=== PATIENT | female | born 1930 | race American Indian/Alaskan Native ===

== ENCOUNTER 2016-06-02 12:54 | Inpatient (IN) | payer MEDICARE ==
[2016-06-02 15:09] LABS: ADD MANUAL DIFF? NO
--- NOTE | 2016-06-02 15:15 | ED PDOC ---
Arrival/HPI - General Historian: Patient, Family - General Chief Complaint: Trauma Time Seen by Provider: 06/02/16 13:39 - History of Present Illness Narrative History of Present Illness (Text): 06/02/16 15:01 85 y/o female with hx CVA, seizure disorder, Afib on coumadin presenting s/p fall at home. History is provided primarily by patient's daughter. Daughter states her brother found the patient on the kitchen floor this morning. Brother does not report any obvious seizure activity or focal weakness during this time. The patient states she does not completely remember falling. It is unclear if the patient experienced head trauma. Daughter states the patient's mental status is altered from baseline. Currently patient is complaining of right hip and right knee pain. Daughter states patient is compliant with her seizure medications. (Kvng Del Real) Past Medical History - Provider Review Nursing Documentation Reviewed: Yes - Tetanus Immunization Tetanus Immunization: Unknown - Cardiac Hx Cardiac Disorders: Yes Hx Hypertension: Yes - Pulmonary Hx Respiratory Disorders: Yes Hx Pneumonia: Yes - Neurological Hx Neurological Disorder: Yes HX Cerebrovascular Accident: Yes (LEFT SIDED WEAKNESS) Hx Seizures: Yes - HEENT Hx HEENT Disorder: Yes Hx Cataracts: Yes Hx Glaucoma: Yes - Renal Hx Renal Disorder: No - Endocrine/Metabolic Hx Endocrine Disorders: No - Hematological/Oncological Hx Blood Disorders: No Hx AIDS: No - Integumentary Hx Dermatological Disorder: No - Musculoskeletal/Rheumatological Hx Musculoskeletal Disorders: Yes Hx Arthritis: Yes Hx Falls: Yes Hx Gout: Yes Hx Unsteady Gait: Yes - Gastrointestinal Hx Gastrointestinal Disorders: No - Genitourinary/Gynecological Hx Genitourinary Disorders: Yes Hx Urinary Tract Infection: Yes - Psychiatric Hx Psychophysiologic Disorder: No Hx Depression: No Hx Emotional Abuse: No Hx Physical Abuse: No Hx Substance Use: No - Past Surgical History Past Surgical History: No Previous - Suicidal Assessment Feels Threatened In Home Enviroment: No Family/Social History Family/Social History: Unknown Family HX Smoking Status: Never Smoked Hx Alcohol Use: No Hx Substance Use: No Hx Substance Use Treatment: No Allergies/Home Meds Allergies/Adverse Reactions: Allergies No Known Allergies Allergy (Verified 04/02/12 16:42) Home Medications: Home Meds Medication Instructions Recorded Confirmed Metoprolol Tartrate [Lopressor] 25 mg PO DAILY 01/27/13 01/27/13 Warfarin [Coumadin] 3 mg PO DAILY 04/02/12 04/02/12 Lorazepam [Ativan] 06/02/16 Phenytoin, Extended [Dilantin] 06/02/16 Simvastatin [Simvastatin] 06/02/16 levETIRAcetam [Keppra] 06/02/16 Review of Systems - Physician Review All systems were reviewed & negative as marked: Yes - Review of Systems Constitutional: absent: Fatigue, Fevers Eyes: Normal ENT: Normal Respiratory: absent: SOB, Cough Cardiovascular: absent: Chest Pain, Calf Pain Gastrointestinal: absent: Abdominal Pain, Diarrhea, Nausea, Vomiting Genitourinary Female: absent: Dysuria, Frequency, Hematuria Skin: absent: Rash, Pruritis, Skin Lesions Neurological: absent: Headache, Dizziness, Focal Weakness, Speech Changes Psychiatric: absent: Anxiety, Depression Physical Exam Vital Signs Reviewed: Yes Temperature: Afebrile Blood Pressure: Normal Pulse: Regular Respiratory Rate: Normal Appearance: Positive for: Well-Appearing, Non-Toxic Pain Distress: None Mental Status: Positive for: Confused - Systems Exam Head: Present: Atraumatic, Normocephalic Pupils: Present: PERRL Extroacular Muscles: Present: EOMI Conjunctiva: Present: Normal Mouth: Present: Moist Mucous Membranes Neck: Present: Normal Range of Motion. No: Meningeal Signs, MIDLINE TENDERNESS , Paraspinal Tenderness, Lymphadenopathy Respiratory/Chest: Present: Clear to Auscultation, Good Air Exchange. No: Respiratory Distress Cardiovascular: Present: Regular Rate and Rhythm, Normal S1, S2 Abdomen: Present: Normal Bowel Sounds. No: Tenderness, Distention Upper Extremity: Present: Normal Inspection. No: Cyanosis, Edema Lower Extremity: Present: Other (tenderness along right knee joint line medially. tenderness trochanter of right hip ) Neurological: Present: GCS=15, CN II-XII Intact, Speech Normal Skin: Present: Warm, Dry. No: Rashes, Erythematous, Laceration, Abrasion Psychiatric: Present: Alert Vital Signs Temp Pulse Resp BP Pulse Ox 06/02/16 17:38 64 18 117/67 97 06/02/16 15:00 68 18 115/65 97 06/02/16 13:08 98.3 F 74 18 113/62 97 Medical Decision Making ED Course and Treatment: 06/02/16 16:00 ATTENDING PHYSICIAN FOCUSED HISTORY AND PHYSICAL EXAM NOTE: Patient is an 85 yr old female who was seen and examined w/ the resident. Pt was found on floor at home by family member. Pt c/o right hip and right knee pain. Pt has amnesia as to the exact mechanism (ie, fall vs. syncope). On our exam, pt is alert and awake in NAD Heart: RRR Lungs: CTA B/L, no R/R/W RLE: (+) tenderness to right hip, RLE is rotated Initial Impression: Fall vs. Syncope; r/o Fx. Initial Plan: Will get imaging and check labs (Mekhi Dahl Jr.) 06/02/16 15:17 85 y/o female with hx CVA, afib on coumadin, seizure disorder, HTN presenting s/ p fall at home. It is unclear if fall was attributed to syncope vs mechanical. There is no obvious head trauma however due to coumadin use CT head is warranted. - CBC - CMP - UA - PT, PTT - type and screen - CT head w/o - xray right knee, right hip 06/02/16 17:06 Lab results reviewed. Patient is anemic with Hgb 10.6, which is reduced from baseline. BNP is elevated. Troponin is negative. Liver enzymes and alk phos noted are elevated. Old labs were reviewed and elevated liver enzymes appear to be acute. CT head is reviewed. There is no acute intracranial pathology. CT cervical spine does not reveal fracture. Case discussed with Dr. Worrell who agrees to admit the patient for fall vs syncope. 06/02/16 18:25 xray right hip reveals acute impacted intertrochanteric fracture. Case discussed with Dr. Hodges who agrees to see the patient tonight. 06/02/16 18:44 (Kvng Del Real) - Lab Interpretations Lab Results: 06/02/16 14:50 06/02/16 14:50 Lab Results 06/02/16 14:50: WBC 9.4, RBC 3.70, Hgb 10.9 L, Hct 31.7 L, MCV 85.7, MCH 29.5, MCHC 34.4, RDW 15.4 H, Plt Count 140, MPV 9.2, Gran % 89.2 H, Lymph % (Auto) 6.7 L, [place] % (Auto) 3.2, Eos % (Auto) 0.9 L, Baso % (Auto) 0.0, Gran # 8.36 H, Lymph # 0.6 L, [place] # 0.3, Eos # 0.1, Baso # 0.00, PT 24.1 H, INR 2.23 H, APTT 46.0 H, Sodium 135, Potassium 3.1 L, Chloride 102, Carbon Dioxide 23, Anion Gap 13, BUN 30 H, Creatinine 0.9, Est GFR ( Amer) > 60, Est GFR (Non-Af Amer ) 60, Random Glucose 75, Calcium 8.1 L, Magnesium 1.8, Total Bilirubin 2.0 H, AST 88 H, ALT 70 H, Alkaline Phosphatase 201 H, Lactate Dehydrogenase 596, Total Creatine Kinase 128, Troponin I < 0.01, NT-Pro-B Natriuret Pep 2730 H, Total Protein 6.2, Albumin 3.1, Globulin 3.0, Albumin/Globulin Ratio 1.0 L, Blood Type B POSITIVE, Antibody Screen Negative, BBK History Checked No verified bt - RAD Interpretation Radiology Orders: 06/02/16 14:14 CERVICAL SPINE W/O CONTRAST [CT] Stat HEAD W/O CONTRAST [CT] Stat 06/02/16 14:15 Hip Right [HIP MIN 2V W/ PELVIS RT] [RAD] Stat 06/02/16 14:16 KNEE RIGHT 2 VIEWS (AP & LAT) [RAD] Stat - Medication Orders Current Medication Orders: Potassium Chloride (Potassium Chloride 20 Meq/100 Ml) 100 mls @ 50 mls/hr IVPB Q2H ELEANOR Stop: 06/02/16 21:14 Last Admin: 06/02/16 17:49 Dose: 50 mls/hr Levetiracetam (Keppra) 250 mg PO BID ELEANOR Phenytoin Sodium (Dilantin) 100 mg PO TID ELEANOR Discontinued Medications Potassium Chloride (Potassium Chloride Oral Soln) 40 meq PO STAT STA Stop: 06/02/16 17:05 Last Admin: 06/02/16 17:51 Dose: 40 meq Disposition/Present on Arrival - Present on Arrival Any Indicators Present on Arrival: No History of DVT/PE: No History of Uncontrolled Diabetes: No Urinary Catheter: No History of Decub. Ulcer: No History Surgical Site Infection Following: None - Disposition Have Diagnosis and Disposition been Completed?: Yes Disposition Time: 17:49 Patient Plan: Admission - Disposition Diagnosis: Hip fracture, Syncope Disposition: HOSPITALIZED Patient Problems: Current Active Problems Problem Status Diagnosed Hip fracture Acute Syncope Acute Condition: FAIR
[2016-06-02 15:16] LABS: EOS # 0.1 (0.0-0.7); EOS % 0.9 % (1.5-5.0); GRAN # 8.36 (1.4-6.5); GRAN % 89.2 % (50.0-68.0); HEMATOCRIT 31.7 % (36.0-48.0); LYMPH # 0.6 (1.2-3.4); LYMPH % 6.7 % (22.0-35.0); MEAN CELL VOLUME 85.7 fL (80.0-105.0); MEAN CORPUSCULAR HEMOGLOBIN 29.5 pg (25.0-35.0); MEAN CORPUSCULAR HGB CONC 34.4 g/dl (31.0-37.0); MEAN PLATELET VOLUME 9.2 fl (7.0-11.0); MONO # 0.3 (0.1-0.6); MONO % 3.2 % (1.0-6.0); PLATELET COUNT 140 10^3/uL (120.0-450.0); RED CELL DISTRIBUTION WIDTH 15.4 % (11.5-14.5); WHITE BLOOD COUNT 9.4 10^3/ul (4.5-11.0)
[2016-06-02 15:25] LABS: ALKALINE PHOSPHATASE 201 U/L (38-133); ALT/SGPT 70 U/L (7-56); AST/SGOT 88 U/L (15-39); BLOOD UREA NITROGEN 30 mg/dL (7-21); CALCIUM 8.1 mg/dL (8.4-10.5); CARBON DIOXIDE 23 mmol/L (21-33); CHLORIDE 102 mmol/L (98-107); GFR AFRICAN-AMERICAN > 60; GLUCOSE,RANDOM 75 mg/dL (70-110); MAGNESIUM 1.8 mg/dL (1.7-2.2); POTASSIUM 3.1 mmol/L (3.6-5.0); SODIUM 135 mmol/L (132-148); TOTAL PROTEIN 6.2 g/dL (5.8-8.3)
[2016-06-02 15:30] LABS: INR 2.23 (0.93-1.08)
[2016-06-02 15:38] LABS: TROPONIN I < 0.01 ng/mL
--- NOTE | 2016-06-02 16:31 | CT ---
PROCEDURE: CT HEAD WITHOUT CONTRAST. HISTORY: Fell and LOC; r/o neck or head injury COMPARISON: 04/02/2012 TECHNIQUE: Axial computed tomography images were obtained through the head/brain without intravenous contrast. Radiation dose: Total exam DLP = 822 mGy-cm. FINDINGS: HEMORRHAGE: No intracranial hemorrhage. BRAIN: No mass effect or edema. There is severe atrophy. There is encephalomalacia in the left temporal lobe and left occipital white matter VENTRICLES: Unremarkable. No hydrocephalus. CALVARIUM: Unremarkable. PARANASAL SINUSES: Unremarkable as visualized. No significant inflammatory changes. MASTOID AIR CELLS: Unremarkable as visualized. No inflammatory changes. OTHER FINDINGS: None. IMPRESSION: Severe atrophy and encephalomalacia. No acute intracranial findings
--- NOTE | 2016-06-02 16:33 | CT ---
PROCEDURE: CT Cervical Spine without contrast HISTORY: Fall with loss of consciousness COMPARISON: None available. TECHNIQUE: Axial computed tomography images were obtained of the cervical spine without the use of intravenous contrast. Coronal and sagittal reformatted images were created and reviewed. Radiation dose: Total exam DLP = 437 mGy-cm. FINDINGS: VERTEBRAE: No fracture. Normal alignment. No destructive bony lesion. DISCS/SPINAL CANAL/NEURAL FORAMINA: No significant central canal or neural foraminal stenosis. Multilevel degenerative changes PARASPINAL SOFT TISSUES: Unremarkable. OTHER FINDINGS: None. IMPRESSION: No evidence of fracture
[2016-06-02] MEDS ORDERED: Potassium Chloride 40 mEq/30 ml LIQ UD PO STA (17:04)
--- NOTE | 2016-06-02 17:15 | RAD ---
PROCEDURE: Right Knee Radiographs. HISTORY: fell w/ right hip pain and right knee pain COMPARISON: None. FINDINGS: BONES: There is diffuse bone demineralization. There is no acute fracture or bone destruction. JOINTS: There is severe tricompartmental degenerative osteoarthrosis with severe reduced joint spaces, marginal osteophytes and chondrocalcinosis, worse in the medial compartment. JOINT EFFUSION: There is a moderate suprapatellar joint effusion. OTHER FINDINGS: Atherosclerotic vascular calcifications are present. IMPRESSION: No acute displaced fracture or dislocation. Severe tricompartmental degenerative osteoarthrosis, worse in the medial compartment.
--- NOTE | 2016-06-02 17:22 | CARD ---
APPROVED REPORT EKG Measurement Heart [id number] <Conclusion> Atrial fibrillation Left anterior fascicular block Nonspecific ST and T wave abnormality, probably digitalis effect Abnormal ECG
--- NOTE | 2016-06-02 17:25 | RAD ---
PROCEDURE: Right hip radiographs HISTORY: fell w/ right hip pain and right knee pain COMPARISON: None TECHNIQUE: AP pelvis and AP and lateral views of the right hip were obtained. FINDINGS: There is an acute impacted intertrochanteric fracture. There is diffuse bone demineralization. The pelvic ring is intact. There is moderate right and severe left degenerative osteoarthrosis with near complete loss of left medial joint space. The periarticular soft tissues are normal. Atherosclerotic vascular calcifications are present. IMPRESSION: Acute impacted right intertrochanteric fracture. Moderate right and severe left degenerative osteoarthrosis in the hip joints.
[2016-06-02] MEDS: Potassium Chloride 20 mEq 100 ML IVPB SCH ×3 (17:49→23:15)
--- NOTE | 2016-06-02 20:52 | CON ---
DATE: 06/02/2016 An 85-year-old female came into the [facility] today on 06/02/2016 with hip pain from a fall at home. Negative CAT scan of her head. The x-ray of the right hip shows intertrochanteric fracture, right hip at the base of the neck but comminuted. She is on Coumadin for blood thinners for heart di sease and Dr. Worrell wants to get a cardiac consult with Dr. Driscoll. I told the family because krzysztof trevino is on Coumadin, we should wait until the protime comes down to normal, which is 2.5 today. We will plan on doing a right hip prosthesis or pinning on this Tuesday. I will schedule her in the morning for OR on Tuesday after she gets a CAT scan tomorrow and a cardiac workup, and we will get a type and cross for 2 units of packed cells, and repeat her blood work in the morning. FINAL DIAGNOSIS: Intertrochanteric fracture, right hip with extreme osteopenia and with limited abil ity to ambulate, basically a room ambulator. Ck Hodges DO cc: [id number] TT: 06/02/2016 20:52:39 Confirmation # [id number] Dictation # [id number] mn
[2016-06-02 21:12] LABS: ADD MANUAL DIFF? NO
[2016-06-02 21:27] LABS: BASO # 0.01 K/mm3 (0.0-2.0); BASO % 0.1 % (0.0-3.0); EOS % 0.3 % (1.5-5.0); GRAN # 8.75 (1.4-6.5); GRAN % 90.8 % (50.0-68.0); HEMATOCRIT 31.5 % (36.0-48.0); LYMPH # 0.4 (1.2-3.4); LYMPH % 4.6 % (22.0-35.0); MEAN CELL VOLUME 85.6 fL (80.0-105.0); MEAN CORPUSCULAR HEMOGLOBIN 29.9 pg (25.0-35.0); MEAN CORPUSCULAR HGB CONC 34.9 g/dl (31.0-37.0); MONO # 0.4 (0.1-0.6); MONO % 4.2 % (1.0-6.0); PLATELET COUNT 146 10^3/uL (120.0-450.0); RED CELL DISTRIBUTION WIDTH 15.3 % (11.5-14.5); WHITE BLOOD COUNT 9.6 10^3/ul (4.5-11.0)
[2016-06-02 21:48] LABS: INR 2.38 (0.93-1.08)
[2016-06-03 01:33] VITALS: BMI 16.7
[2016-06-03 02:56] LABS: PH,URINE 5.5 (4.7-8.0); URINE BILIRUBIN SMALL (NEGATIVE); URINE BLOOD MODERATE (NEGATIVE); URINE GLUCOSE (UA) NEGATIVE (NEGATIVE); URINE KETONE NEGATIVE (NEGATIVE); URINE LEUKOCYTE ESTERASE NEGATIVE Leu/uL (NEGATIVE); URINE PROTEIN TRACE mg/dL (<30 mg/dL)
[2016-06-03 03:09] LABS: URINE APPEARANCE SLIGHT-CLOUDY (CLEAR); URINE COLOR YELLOW (YELLOW)
[2016-06-03 03:26] LABS: URINE BACTERIA TRACE (NEG); URINE EPITHELIAL CELLS 0 - 2 /hpf (0-5); URINE WBC 0 - 2 /hpf (0-6)
[2016-06-03 07:17] LABS: INR 2.17 (0.93-1.08)
[2016-06-03 07:20] LABS: ALKALINE PHOSPHATASE 197 U/L (38-133); ALT/SGPT 72 U/L (7-56); AST/SGOT 59 U/L (15-39); BILIRUBIN,TOTAL 1.5 mg/dL (0.2-1.3); BLOOD UREA NITROGEN 25 mg/dL (7-21); CALCIUM 8.4 mg/dL (8.4-10.5); CARBON DIOXIDE 20 mmol/L (21-33); CHLORIDE 106 mmol/L (95-110); GFR AFRICAN-AMERICAN > 60; GLUCOSE,RANDOM 96 mg/dL (70-110); POTASSIUM 4.7 mmol/L (3.6-5.0); SODIUM 136 mmol/L (132-148); TOTAL PROTEIN 6.6 g/dL (5.8-8.3)
--- NOTE | 2016-06-03 08:35 | CT ---
PROCEDURE: CT of the right Hip. HISTORY: pre op COMPARISON: June 02, 2016. Right hip radiographs. TECHNIQUE: 2.5 mm axial acquisition and display. Coronal and sagittal reconstructions. Dose report (mGy-cm): 178.51 FINDINGS: BONES: CT confirms findings on plain film radiographs. Specifically impacted proximal femoral fracture involves greater trochanter as well as the lesser trochanter. Preservation of femoral acetabular relationship. Age appropriate degenerative changes noted. Inter trochanteric fracture Femoral head maintains normal contour. SOFT TISSUES: Unremarkable. IMPRESSION: Impacted, comminuted fracture proximal femur with subcapital an intertrochanteric component.
[2016-06-03] MEDS ORDERED: Phytonadione 10 mg/ml Inj (Adult) SC ONE ×2 (09:00→18:00)
--- NOTE | 2016-06-03 09:21 | CON ---
DATE: 06/03/2016 INDICATIONS: Preoperative evaluation, chronic atrial fibrillation, status post fall with right hip fracture. HISTORY OF PRESENT ILLNESS: This is an 85-year-old woman who is a limited historian admitted yesterday after a fall at home. The details are unclear; she does not recall. She underwent evaluation in the Emergency Room. A right hip fracture was discovered. Surgery is planned for tomorrow after correction of her INR. The patient is a limited historian. She does not recall what happened. At this time, she denies chest pain, shortness of breath, orthopnea, PND, syncope, presyncope, lightheadedness, dizziness, vertigo, palpitations, fever, chills, cough, sputum production, hemoptysis, abdominal pain, nausea, vomiting, diarrhea, constipation, melena. PAST MEDICAL HISTORY: Notable for chronic atrial fibrillation, she is on Coumadin. She has a seizure disorder, hyperlipidemia, hypertension, an old stroke, and cataracts. She has glaucoma and arthritis. There is dementia. There is no history of rheumatic fever, myocardial infarction, congestive heart failure, diabetes, or gout. MEDICATIONS: At the time of admission included metoprolol, warfarin, Ativan, Dilantin, simvastatin, Keppra. ALLERGIES: There are no known medication allergies. SOCIAL HISTORY: She lives at home with her family. She does not smoke. She does not drink alcohol. FAMILY HISTORY: Not available. REVIEW OF SYSTEMS: A 10-point review of systems is limited, but negative except for above. PHYSICAL EXAMINATION: GENERAL: She is a well-developed elderly woman lying in bed on telemetry, in no acute distress. VITAL SIGNS: Unremarkable. She is in atrial fibrillation with a moderate ventricular response, 64-120 beats per minute; temperature 98.2, blood pressure 134/76, respirations 18-20, O2 sat 97-99% on room air. HEENT: Reveals no neck vein distention, thyromegaly, or carotid bruits. Mucous membranes are moist. Conjunctivae are pink. NECK: Supple. CHEST: Lung real clear throughout. HEART: Revealed an irregular rhythm. Normal first and second heart sounds. Soft systolic murmur along the left sternal border. ABDOMEN: Soft. Bowel sounds present. No mass, organomegaly, tenderness, rebound, or guarding. EXTREMITIES: Revealed no cyanosis, clubbing, or edema. NEUROLOGIC: She is awake, alert. She is confused and disoriented. PSYCHIATRIC: Normal mood and affect. SKIN: Warm and dry. No rash or cellulitis. LABORATORY AND IMAGING: EKG demonstrates atrial fibrillation with moderate ventricular response, no acute changes. Cervical spine CT reveals no fracture. Head CT reveals severe atrophy and encephalomalacia; no acute findings. Hip and pelvis x-ray demonstrates impacted right intertrochanteric fracture. Severe left hip degeneration is also noted. A knee x-ray reveals no acute displaced fracture or dislocation, severe tricompartmental degenerative osteoarthritis. A hip CT reveals impacted comminuted fracture of proximal femur with subcapsule and intertrochanteric component. Hemoglobin 11, hematocrit 31, white count normal, platelet count normal. PT 23.4, INR 2.17, PTT 46. Electrolytes, BUN, creatinine, blood sugar unremarkable. Bilirubin 2.0 , repeat 1.5. Elevated AST, ALT and alkaline phosphatase are noted. CK 128. Troponin less than 0.01. BNP 2730. Urinalysis is noted. IMPRESSION: The patient is an 85-year-old woman with dementia, seizure disorder , hypertension; chronic atrial fibrillation, on warfarin; admitted with a fall at home, details uncertain; and a right hip fracture who is scheduled to undergo orthopedic surgery tomorrow. She is on telemetry. She will get vitamin K and reverse the PT/INR. She is on Dilantin, Keppra, metoprolol and tramadol. She got potassium. Will monitor I' s and O's. Will check stool for occult blood. We will repeat the INR in the morning after she receives vitamin K today. Orthopedic surgery is planned for tomorrow. She appears to be a mildly increased cardiac risk. I will follow along with you. I will make additional recommendations based on her clinical course. Omega Driscoll MD cc: [id number] TT: 06/03/2016 09:20:09 Confirmation # [id number] Dictation # [id number] kristy BLANCA
--- NOTE | 2016-06-03 09:22 | RAD ---
PROCEDURE: Right Hip Radiographs. HISTORY: right hip fracture COMPARISON: None. FINDINGS: BONES: Grossly limited examination consists of only a single frontal view. Suspect intertrochanteric fracture, nondisplaced. Mild angulation. Possible comminution. JOINTS: Normal. SOFT TISSUES: Normal. OTHER FINDINGS: None. IMPRESSION: Limited examination. Suspected intertrochanteric fracture right hip.
--- NOTE | 2016-06-03 09:27 | PN ---
DATE: 06/03/2016 In room 363, bed 2, with intertrochanteric fracture, comminuted, of her right hip. X-rays were done last night showing the comminution. Today, we did a CAT scan that shows she does have a fracture at the base of the neck, and we will try to do a peritroch mp to avoid a prosthesis as the patient may not be able to tolerate a prosthesis if she cannot cooperate with the postop protocols which are stri ct. In other words, you cannot flex your knee that much right away and flex your hip and you cannot sit in low chairs, and there is a high chance of dislocation if she does not listen to the protocol. So we will do a pinning which is safer for her. If that happens to fail, then we would have to reso rt to a prosthesis. The CAT scan does show a comminuted fracture at the base of the neck, and we elizabeth l try our best to put together with a pain and intramedullary mp. The family will be told that also if that fails then she would need a prosthesis. Hopefully, we can do the surgery on Tuesday morning; OR said about 7:30 or 8:00 when she is medically cleared. Ck Hodges DO cc: [id number] TT: 06/03/2016 09:26:10 Confirmation # [id number] Dictation # [id number] kristy
[2016-06-03] MEDS ORDERED: LORazepam Half Tablet 0.25 MG PO PRN (09:49)
--- NOTE | 2016-06-03 10:15 | HP ---
HISTORY OF PRESENT ILLNESS: The patient is an 85-year-old black female with a long history of seizur e disorder, anxiety disorder, chronic atrial fibrillation. The patient fell at home, fracturing her hip. She was brought to the Emergency Room with change in mental status and fractured hip and was ad mitted to the hospital with the same. PHYSICAL EXAMINATION: GENERAL: Shows a well-developed, but thin black female in mild distress. HEENT: Essentially normal limits. HEART: Irregularly irregular with controlled ventricular response. CHEST: Clear to auscultation and percussion. NEUROLOGIC: The patient is awake and oriented x 3. She does have some vertical nystagmus and she do es have some retraction of the right leg. LABORATORY DATA: Unremarkable except for an elevated INR secondary to her Coumadin. The patient will be taken off of Coumadin and receive vitamin K. A cardiology consultation for clear ance for surgery. Orthopedic consultation for repair of her hip fracture. We will continue her anti -seizure medications and her medications to control her heart rate and we will be following the patie nt postoperatively. IMPRESSION: An 85-year-old black female, chronic atrial fibrillation, chronic seizure disorder, anxi ety disorder, presenting with a fall and a fractured hip. Chase Worrell MD cc: [id number] TT: 06/03/2016 10:15:20 dc
[2016-06-03] MEDS: Oxycodone/Acetaminophen 2.5/325 mg Tab PO PRN (10:47)
[2016-06-03 19:27] LABS: ADD MANUAL DIFF? NO
[2016-06-03 19:31] LABS: BASO # 0.02 K/mm3 (0.0-2.0); BASO % 0.2 % (0.0-3.0); EOS # 0.1 (0.0-0.7); EOS % 0.7 % (1.5-5.0); GRAN # 6.83 (1.4-6.5); GRAN % 83.2 % (50.0-68.0); HEMATOCRIT 32.6 % (36.0-48.0); LYMPH # 0.8 (1.2-3.4); LYMPH % 9.3 % (22.0-35.0); MEAN CELL VOLUME 86.2 fL (80.0-105.0); MEAN CORPUSCULAR HEMOGLOBIN 29.9 pg (25.0-35.0); MEAN CORPUSCULAR HGB CONC 34.7 g/dl (31.0-37.0); MEAN PLATELET VOLUME 8.9 fl (7.0-11.0); MONO # 0.5 (0.1-0.6); MONO % 6.6 % (1.0-6.0); PLATELET COUNT 143 10^3/uL (120.0-450.0); RED CELL DISTRIBUTION WIDTH 15.2 % (11.5-14.5); WHITE BLOOD COUNT 8.2 10^3/ul (4.5-11.0)
[2016-06-04 04:51] LABS: ADD MANUAL DIFF? NO
[2016-06-04 04:57] LABS: BASO # 0.03 K/mm3 (0.0-2.0); BASO % 0.5 % (0.0-3.0); EOS # 0.1 (0.0-0.7); EOS % 1.1 % (1.5-5.0); GRAN # 4.77 (1.4-6.5); GRAN % 72.1 % (50.0-68.0); HEMATOCRIT 31.7 % (36.0-48.0); LYMPH # 1.2 (1.2-3.4); LYMPH % 17.5 % (22.0-35.0); MEAN CELL VOLUME 85.9 fL (80.0-105.0); MEAN CORPUSCULAR HEMOGLOBIN 30.1 pg (25.0-35.0); MEAN PLATELET VOLUME 9.1 fl (7.0-11.0); MONO # 0.6 (0.1-0.6); MONO % 8.8 % (1.0-6.0); PLATELET COUNT 136 10^3/uL (120.0-450.0); RED CELL DISTRIBUTION WIDTH 15.2 % (11.5-14.5); WHITE BLOOD COUNT 6.6 10^3/ul (4.5-11.0)
[2016-06-04 05:07] LABS: INR 1.43 (0.93-1.08)
[2016-06-04 05:29] LABS: ALB/GLOB RATIO 1.1 (1.1-1.8); ALKALINE PHOSPHATASE 172 U/L (38-133); ALT/SGPT 44 U/L (7-56); AST/SGOT 32 U/L (15-39); BILIRUBIN,TOTAL 1.1 mg/dL (0.2-1.3); BLOOD UREA NITROGEN 20 mg/dL (7-21); CALCIUM 8.3 mg/dL (8.4-10.5); CARBON DIOXIDE 23 mmol/L (21-33); CHLORIDE 106 mmol/L (95-110); GFR AFRICAN-AMERICAN > 60; GLUCOSE,RANDOM 92 mg/dL (70-110); POTASSIUM 4.3 mmol/L (3.6-5.0); SODIUM 137 mmol/L (132-148); TOTAL PROTEIN 6.3 g/dL (5.8-8.3)
[2016-06-04] MEDS ORDERED: Succinylcholine 200 mg/10 ml Inj IV ONE (07:11)
[2016-06-04] MEDS ORDERED: Etomidate 20 mg/10ml Inj IV ONE (07:11)
[2016-06-04] MEDS ORDERED: Rocuronium 10 mg/ml (5 ml) ONE (07:11)
[2016-06-04] MEDS ORDERED: Bupivacaine 0.5% Inj(30mL) ONE ×2 (07:12→08:50)
[2016-06-04] MEDS ORDERED: ePHEDrine 50 mg/ml Inj ONE (07:14)
[2016-06-04] MEDS ORDERED: Phenylephrine 10 mg/ml Inj ONE (07:14)
[2016-06-04] MEDS ORDERED: Glycopyrrolate 0.2 mg/ml (2ml vial) ONE (07:19)
[2016-06-04] MEDS ORDERED: Lidocaine 2% Inj (20ml) ONE (08:34)
[2016-06-04] MEDS ORDERED: Neostigmine Methylsulfate 3mg/3ml Syringe IV ONE (08:43)
[2016-06-04] MEDS ORDERED: HYDROmorphone 0.5 mg/0.5 ml ISec IVP PRN (09:40)
[2016-06-04] MEDS ORDERED: Sodium Chloride 0.9% 1,000 ML IV SCH (09:45)
[2016-06-04 10:20] LABS: ADD MANUAL DIFF? NO
[2016-06-04 10:24] LABS: BASO # 0.03 K/mm3 (0.0-2.0); BASO % 0.5 % (0.0-3.0); EOS # 0.1 (0.0-0.7); GRAN # 4.61 (1.4-6.5); HEMATOCRIT 30.7 % (36.0-48.0); LYMPH # 1.1 (1.2-3.4); LYMPH % 17.3 % (22.0-35.0); MEAN CELL VOLUME 86.2 fL (80.0-105.0); MEAN CORPUSCULAR HEMOGLOBIN 29.8 pg (25.0-35.0); MEAN CORPUSCULAR HGB CONC 34.5 g/dl (31.0-37.0); MONO # 0.7 (0.1-0.6); MONO % 10.2 % (1.0-6.0); PLATELET COUNT 139 10^3/uL (120.0-450.0); RED CELL DISTRIBUTION WIDTH 15.1 % (11.5-14.5); WHITE BLOOD COUNT 6.6 10^3/ul (4.5-11.0)
--- NOTE | 2016-06-04 10:40 | OP ---
theproximalthe [id number] DATE: 06/04/2016 PREOPERATIVE DIAGNOSIS: Comminuted intertrochanteric fracture at the base of the neck of the right hip. POSTOPERATIVE DIAGNOSIS: Comminuted intertrochanteric fracture at the base of the neck of the right hip. PROCEDURES: Open reduction and internal fixation with a Biomet Affixus nail, size being 9 mm wide and 125 degree and 180 mm long; a lag screw was 95 mm long x 10.5 mm wide; one screw distally was a cortical screw 38 mm long x 5 mm, and an end cap. ANESTHESIA: Endotracheal tube general anesthesia. BUSINESS SUPPORT LIAISON: Podiatry resident, Dora. DESCRIPTION OF PROCEDURE: The patient was taken to the OR. At this time, we prepped and draped the right hip. Under traction it showed that we could reduce it with gentle traction and rotation, internal. Then we made a 3 cm incision 4 cm above the greater trochanter and went down to the greater trochanter and entered through the fracture into the distal fragment with a threaded tip guidewire. Then we overreamed with a 17 mm reamer proximally for the first 7 cm, and then put in the Affixus nail over the guidewire which then was removed. Then a second incision with the help of the jig to go into the femoral head and neck to do the reaming. X-rays showed that it was in good position along the calcar. We put in the 95 mm long lag screw. We augmented the unstable fracture with a second screw more proximal, which is a compression screw, with a special device, using that screw that was an 80 mm derotation screw. The patient had an end cap applied. The x-ray showed good position after we put the traction. Before locking distally, we took the traction off and then x-ray showed good position of the hardware and the fracture. The 3 wounds were closed with 0 Vicryl deep layer, 2-0 subcutaneous tissue, skin with stainless steel alondra. The patient taken to recovery room in good condition. Ck Hodges DO cc: [id number] TT: 06/04/2016 10:39:57 kristy BLANCA
--- NOTE | 2016-06-04 10:44 | RAD ---
HISTORY: or tomorrow COMPARISON: 04/02/2012 FINDINGS: LUNGS: No active pulmonary disease. PLEURA: No significant pleural effusion identified, no pneumothorax apparent. CARDIOVASCULAR: Normal. OSSEOUS STRUCTURES: No significant abnormalities. VISUALIZED UPPER ABDOMEN: Normal. OTHER FINDINGS: None. IMPRESSION: No active disease.
--- NOTE | 2016-06-04 14:31 | PN ---
DATE: 06/04/2016 The patient is an 85-year-old black female with history of seizure disorder, hypertension, chronic ur inary tract infection, status post fall and hip fracture. The patient also has chronic atrial fibril lation. She was taken off her Coumadin and put on vitamin K to reverse her INR. She was able to go to surgery this morning with Dr. Hodges. The patient was still complaining of some leg pain. Her laboratory data were unremarkable. Her INR was down to 1.43 this morning prior to surgery. H an d H were stable. The patient was still complaining of some pain. She was able to be taken to surger by Dr. Hodges, had a hip pinning done without problems, without any excessive bleeding. This was performed on the right hip. The patient will be transferred back to the floor and eventually [facility] physical therapy and plan is to be transferred to [facility] when she is past her perioperative pe riod. PHYSICAL EXAMINATION: GENERAL: Shows a well-developed, but thin black female, in mild distress. HEENT: Essentially within normal limits. HEART: , controlled ventricular response. CHEST: Clear to auscultation and percussion. ABDOMEN: Without organomegaly. Bowel sounds are normoactive. EXTREMITIES: Without cyanosis, clubbing or edema. There is some swelling and tenderness of the righ t hip. IMPRESSION: Right hip fracture, status post fall, seizure disorder, chronic urinary tract infection and chronic atrial fibrillation. Chase Worrell MD cc: [id number] TT: 06/04/2016 14:31:08 Confirmation # [id number] Dictation # [id number] en
[2016-06-04] MEDS: Dextrose 5%/0.45% NS 1,000 ML IV SCH (15:30)
[2016-06-04] MEDS: Oxycodone/Acetaminophen 2.5/325 mg Tab PO PRN (15:50)
[2016-06-04] MEDS: HYDROmorphone 0.5 mg/0.5 ml ISec SC PRN (21:00)
[2016-06-05] MEDS: HYDROmorphone 0.5 mg/0.5 ml ISec SC PRN ×2 (01:39→09:05)
--- NOTE | 2016-06-05 08:05 | CP.PCM.PN ---
Subjective - Date & Time of Evaluation Date of Evaluation: 06/05/16 Time of Evaluation: 08:00 - Subjective Subjective: Stable on 3R. S/P ortho. surgery yesterday>Op note noted. V/S noted. AF PE: Lungs: clear Cor.: irreg, S1S2 Abd.; soft Ext.: no edema Neuro.: alert I/O= 1300/775 06/04 labs noted. Objective - Vital Signs/Intake and Output Vital Signs (last 24 hours): Temp Pulse Resp BP Pulse Ox 99.0 F 78 20 120/59 L 99 06/05/16 06:00 06/05/16 06:00 06/05/16 06:00 06/05/16 06:00 06/05/16 06:00 Intake and Output: 06/05/16 06/05/16 06:59 18:59 Intake Total 1180 Output Total 650 Balance 530 - Medications Medications: Current Medications Atorvastatin Calcium (Lipitor) 10 mg PO 1800 [facility] Last Admin: 06/04/16 17:44 Dose: 10 mg Cholecalciferol (Vitamin D) 1,000 iu PO QAM [facility] Last Admin: 06/04/16 10:03 Dose: Not Given Hydromorphone HCl (Dilaudid) 0.5 mg SC Q4H PRN PRN Reason: Pain, severe (8-10) Last Admin: 06/05/16 01:39 Dose: 0.5 mg Dextrose/Sodium Chloride (Dextrose 5%/0.45% Ns 1000 Ml) 1,000 mls @ 60 mls/hr IV .[id number] [facility] Stop: 06/05/16 14:00 Last Admin: 06/04/16 15:30 Dose: 60 mls/hr Levetiracetam (Keppra) 250 mg PO QOTHERDAY [facility] Lorazepam (Ativan) 0.25 mg PO BID PRN; Protocol PRN Reason: Anxiety Metoprolol Tartrate (Lopressor) 25 mg PO DAILY [facility] Last Admin: 06/04/16 10:03 Dose: Not Given Oxycodone/Acetaminophen (Percocet 2.5/325 Mg Tab) 1 tab PO Q4H PRN PRN Reason: Pain, moderate (4-7) Last Admin: 06/04/16 15:50 Dose: 1 tab Phenytoin Sodium (Dilantin) 200 mg PO QOTHERDAY [facility] Last Admin: 06/03/16 10:36 Dose: 200 mg Phenytoin Sodium (Dilantin) 100 mg PO QOTHERDAY [facility] Last Admin: 06/04/16 10:02 Dose: Not Given Phenytoin Sodium (Dilantin) 100 mg PO 1800 [facility] Last Admin: 06/04/16 17:46 Dose: 100 mg Timolol Maleate (Timoptic 0.5% Ophth Soln) 1 drop OS 1800 [facility] Last Admin: 06/04/16 17:45 Dose: 1 drp - Labs Labs: 06/04/16 10:19 06/04/16 04:40 PT 15.4 Seconds (9.9-11.8) H 06/04/16 04:40 INR 1.43 (0.93-1.08) H 06/04/16 04:40 APTT 46.0 Seconds (23.7-30.8) H 06/02/16 14:50 Assessment and Plan - Assessment and Plan (Free Text) Plan: Assessment: Fall Right hip fx. Chronic AF on warfarin HBP CVA HLD Seizure disorder Dementia Cataracts/Glaucoma Plan: As per ortho and Dr. Wrorell Resume warfarin, as per ortho PT/Rehab.
--- NOTE | 2016-06-05 08:22 | PN ---
DATE: 06/05/2016 FIRST DAY POSTOP REPORT An 85-year-old female who underwent a right hip open reduction internal fixation yesterday, is doing well. She should be able to get up out of bed today. We will follow her H and H, and her wound is d ry. She will have limited ability to ambulate because of her age and muscle weakness, but will get h er up out of bed and hopefully go to a good subacute rehab in 2 days. Otherwise, she is doing well a nd we will just follow her blood work, mainly H and H. Ck Hodges DO cc: [id number] TT: 06/05/2016 08:21:19 Confirmation # [id number] Dictation # [id number] kristy
[2016-06-05] MEDS: Dextrose 5%/0.45% NS 1,000 ML IV SCH (08:51)
--- NOTE | 2016-06-05 10:13 | PN ---
DATE: 06/05/2016 SUBJECTIVE: An 85-year-old black female admitted to the hospital after a fall with a right hip fract ure, status post repair by Dr. Hodges, history of chronic atrial fibrillation, seizure disorder , mild hypertension and chronic urinary tract infection. The patient did well postop. She is seen in bed postop. Her wounds are clean and dry. PHYSICAL EXAMINATION: CHEST: Clear to auscultation and percussion. HEART: Irregularly irregular with controlled ventricular response. The patient will be restarted on her Coumadin today. She will start physical therapy and occupationa l therapy and then she will be also evaluated for transfer to subacute for rehabilitation of her repa ired right hip. is unremarkable. Physical examination unchanged as stated above. IMPRESSION: Status post right hip repair, seizure disorder, chronic atrial fibrillation. PLAN: Restart Coumadin. Chase Worrell MD cc: [id number] TT: 06/05/2016 10:13:30 Confirmation # [id number] Dictation # [id number] ankit
[2016-06-05 10:31] LABS: ADD MANUAL DIFF? NO
[2016-06-05 10:35] LABS: BASO # 0.01 K/mm3 (0.0-2.0); BASO % 0.1 % (0.0-3.0); EOS % 0.2 % (1.5-5.0); GRAN # 6.28 (1.4-6.5); GRAN % 76.7 % (50.0-68.0); HEMATOCRIT 28.1 % (36.0-48.0); LYMPH # 1.1 (1.2-3.4); LYMPH % 12.9 % (22.0-35.0); MEAN CELL VOLUME 86.5 fL (80.0-105.0); MEAN CORPUSCULAR HEMOGLOBIN 29.8 pg (25.0-35.0); MEAN CORPUSCULAR HGB CONC 34.5 g/dl (31.0-37.0); MONO # 0.8 (0.1-0.6); MONO % 10.1 % (1.0-6.0); PLATELET COUNT 114 10^3/uL (120.0-450.0); WHITE BLOOD COUNT 8.2 10^3/ul (4.5-11.0)
[2016-06-05 10:45] LABS: ALKALINE PHOSPHATASE 137 U/L (38-133); ALT/SGPT 45 U/L (7-56); AST/SGOT 29 U/L (15-39); BILIRUBIN,TOTAL 1.2 mg/dL (0.2-1.3); BLOOD UREA NITROGEN 18 mg/dL (7-21); CALCIUM 7.8 mg/dL (8.4-10.5); CARBON DIOXIDE 22 mmol/L (21-33); CHLORIDE 104 mmol/L (98-107); GFR AFRICAN-AMERICAN > 60; GLUCOSE,RANDOM 166 mg/dL (70-110); POTASSIUM 3.7 mmol/L (3.6-5.0); SODIUM 134 mmol/L (132-148); TOTAL PROTEIN 5.9 g/dL (5.8-8.3)
[2016-06-05 10:59] LABS: TROPONIN I < 0.01 ng/mL
--- NOTE | 2016-06-05 11:57 | CP.PCM.PN ---
Subjective - Date & Time of Evaluation Date of Evaluation: 06/05/16 Time of Evaluation: 10:10 - Subjective Subjective: Patient seen stat at the request of her RN for her c/o chest pain. She points to the L costochondral area as the site where she had the pain, but says she does not have it any more. Denies any additional symptoms. VS:T 98.4 BP 129/63 HR 93 irreg RR 20 O2sat 99% on R Air. Patient is to be started on coumadin today PMH: Seizures,AFib Objective - Vital Signs/Intake and Output Vital Signs (last 24 hours): Temp Pulse Resp BP Pulse Ox 99.0 F 78 20 120/59 L 99 06/05/16 06:00 06/05/16 09:05 06/05/16 06:00 06/05/16 09:05 06/05/16 06:00 Intake and Output: 06/05/16 06/05/16 06:59 18:59 Intake Total 1180 Output Total 650 Balance 530 - Medications Medications: Current Medications Atorvastatin Calcium (Lipitor) 10 mg PO 1800 [facility] Last Admin: 06/04/16 17:44 Dose: 10 mg Cholecalciferol (Vitamin D) 1,000 iu PO QAM [facility] Last Admin: 06/05/16 09:06 Dose: 1,000 iu Hydromorphone HCl (Dilaudid) 0.5 mg SC Q4H PRN PRN Reason: Pain, severe (8-10) Last Admin: 06/05/16 09:05 Dose: 0.5 mg Dextrose/Sodium Chloride (Dextrose 5%/0.45% Ns 1000 Ml) 1,000 mls @ 60 mls/hr IV .[id number] [facility] Stop: 06/05/16 14:00 Last Admin: 06/05/16 08:51 Dose: Not Given Levetiracetam (Keppra) 250 mg PO QOTHERDAY [facility] Last Admin: 06/05/16 09:06 Dose: 250 mg Lorazepam (Ativan) 0.25 mg PO BID PRN; Protocol PRN Reason: Anxiety Metoprolol Tartrate (Lopressor) 25 mg PO DAILY [facility] Last Admin: 06/05/16 09:05 Dose: 25 mg Oxycodone/Acetaminophen (Percocet 2.5/325 Mg Tab) 1 tab PO Q4H PRN PRN Reason: Pain, moderate (4-7) Last Admin: 06/04/16 15:50 Dose: 1 tab Phenytoin Sodium (Dilantin) 200 mg PO QOTHERDAY [facility] Last Admin: 06/05/16 09:06 Dose: 200 mg Phenytoin Sodium (Dilantin) 100 mg PO QOTHERDAY [facility] Last Admin: 06/04/16 10:02 Dose: Not Given Phenytoin Sodium (Dilantin) 100 mg PO 1800 [facility] Last Admin: 06/04/16 17:46 Dose: 100 mg Timolol Maleate (Timoptic 0.5% Ophth Soln) 1 drop OS 1800 [facility] Last Admin: 06/04/16 17:45 Dose: 1 drp Warfarin Sodium (Coumadin) 7.5 mg PO ONCE ONE Stop: 06/05/16 18:01 Warfarin Sodium (Coumadin) 4 mg PO 1800 [facility] - Labs Labs: 06/05/16 10:20 06/05/16 10:20 PT 15.4 Seconds (9.9-11.8) H 06/04/16 04:40 INR 1.43 (0.93-1.08) H 06/04/16 04:40 APTT 46.0 Seconds (23.7-30.8) H 06/02/16 14:50 - Constitutional Appears: Well, No Acute Distress, Cachectic, Other (oriented to name only) - Head Exam Head Exam: ATRAUMATIC, NORMAL INSPECTION, NORMOCEPHALIC - Eye Exam Eye Exam: PERRL - ENT Exam ENT Exam: Mucous Membranes Moist - Neck Exam Neck Exam: Normal Inspection - Respiratory Exam Respiratory Exam: Clear to Ausculation Bilateral - Cardiovascular Exam Cardiovascular Exam: Irregular Rhythm - GI/Abdominal Exam GI & Abdominal Exam: Soft, Normal Bowel Sounds. absent: Tenderness - Extremities Exam Extremities Exam: absent: Calf Tenderness, Pedal Edema Additional comments: Surgical dressing noted on the R hip region - Neurological Exam Neurological Exam: Alert (Oriented x 1,movement of R lower extremity is restricted due to pain,moves other extremities well.) - Psychiatric Exam Psychiatric exam: Flat Affect - Skin Skin Exam: Dry, Warm Assessment and Plan - Assessment and Plan (Free Text) Assessment: Chest pain,now resolved S/P ORIF R hip Afib with RVR Anemia Plan: EKG done stat shows Afib with RVR(rate of 104),and non specific ST-T changes. Patient is already on metoprolol. Discussed with Dr Worrell. ASA 81 mg po to be given now,Troponin 1 stat ,then q 8 h x 2
--- NOTE | 2016-06-05 12:39 | CARD ---
APPROVED REPORT EKG Measurement Heart [id number] <Conclusion> Atrial fibrillation with rapid ventricular response Left axis deviation Nonspecific ST and T wave abnormality, probably digitalis effect Abnormal ECG
[2016-06-06 04:13] LABS: ADD MANUAL DIFF? NO
[2016-06-06 04:23] LABS: BASO # 0.03 K/mm3 (0.0-2.0); BASO % 0.3 % (0.0-3.0); EOS # 0.1 (0.0-0.7); EOS % 0.7 % (1.5-5.0); GRAN # 7.69 (1.4-6.5); GRAN % 74.2 % (50.0-68.0); HEMATOCRIT 27.3 % (36.0-48.0); LYMPH # 1.5 (1.2-3.4); LYMPH % 14.2 % (22.0-35.0); MEAN CELL VOLUME 84.8 fL (80.0-105.0); MEAN CORPUSCULAR HEMOGLOBIN 29.8 pg (25.0-35.0); MEAN CORPUSCULAR HGB CONC 35.2 g/dl (31.0-37.0); MEAN PLATELET VOLUME 8.9 fl (7.0-11.0); MONO # 1.1 (0.1-0.6); MONO % 10.6 % (1.0-6.0); PLATELET COUNT 117 10^3/uL (120.0-450.0); RED CELL DISTRIBUTION WIDTH 14.6 % (11.5-14.5); WHITE BLOOD COUNT 10.4 10^3/ul (4.5-11.0)
[2016-06-06 04:42] LABS: TROPONIN I 0.01 ng/mL
[2016-06-06] MEDS: HYDROmorphone 0.5 mg/0.5 ml ISec SC PRN ×2 (04:59→08:50)
[2016-06-06 05:14] LABS: ALB/GLOB RATIO 0.9 (1.1-1.8); ALKALINE PHOSPHATASE 135 U/L (38-133); ALT/SGPT 32 U/L (7-56); AST/SGOT 31 U/L (15-39); BILIRUBIN,TOTAL 1.1 mg/dL (0.2-1.3); BLOOD UREA NITROGEN 19 mg/dL (7-21); CARBON DIOXIDE 21 mmol/L (21-33); CHLORIDE 101 mmol/L (98-107); GFR AFRICAN-AMERICAN > 60; GLUCOSE,RANDOM 118 mg/dL (70-110); POTASSIUM 3.7 mmol/L (3.6-5.0); SODIUM 130 mmol/L (132-148); TOTAL PROTEIN 5.9 g/dL (5.8-8.3)
--- NOTE | 2016-06-06 10:21 | PN ---
DATE: 06/06/2016 An 85-year-old black female status post fall with fracture of the right hip status post repair of rig ht hip by Dr. Hodges, history of seizure disorder on Dilantin and Keppra, doing well. VITAL SIGNS: Stable. Complaining of chest pain yesterday. Repeat 3 sets of troponins all negative. The patient no further chest pain, no shortness of breath, no diaphoresis, no nausea, vomiting, pal pitations. The patient does have a history of chronic atrial fibrillation. PHYSICAL EXAMINATION: Unchanged. Minimal pain. VITAL SIGNS: Stable. PLAN: To continue physical therapy for her hip replacement and transition to subacute at [facility]. Chase Worrell MD cc: [id number] TT: 06/06/2016 10:20:17 Confirmation # [id number] Dictation # [id number] mn
[2016-06-07 07:15] LABS: ALB/GLOB RATIO 0.9 (1.1-1.8); ALKALINE PHOSPHATASE 130 U/L (38-133); ALT/SGPT 37 U/L (7-56); AST/SGOT 37 U/L (15-39); BILIRUBIN,TOTAL 1.2 mg/dL (0.2-1.3); BLOOD UREA NITROGEN 16 mg/dL (7-21); CALCIUM 8.3 mg/dL (8.4-10.5); CARBON DIOXIDE 21 mmol/L (21-33); CHLORIDE 102 mmol/L (95-110); GFR AFRICAN-AMERICAN > 60; GLUCOSE,RANDOM 88 mg/dL (70-110); POTASSIUM 3.5 mmol/L (3.6-5.0); SODIUM 134 mmol/L (132-148); TOTAL PROTEIN 6.3 g/dL (5.8-8.3)
[2016-06-07] MEDS: Oxycodone/Acetaminophen 2.5/325 mg Tab PO PRN (08:17)
--- NOTE | 2016-06-07 09:26 | PN ---
DATE: 06/07/2016 LOCATION: Room 363, bed 2. The patient is recovering well. Hemoglobin and hematocrit are 9.6 and 27. She should be ready for s ubacute rehab at any time. She does have the potential to be weightbearing to tolerance with a walke r, but she needs much more therapy to help her muscle spasm, instability and fear of falling again. So hopefully she can go to subacute rehab to get further therapy until the bone is healed enough to a llow her to be more independent. Ck Hodges DO cc: [id number] TT: 06/07/2016 09:25:45 Confirmation # [id number] Dictation # [id number] kristy
--- NOTE | 2016-06-07 09:26 | PN ---
DATE: 06/07/2016 An 85-year-old black female with history of seizure disorder, multiple urinary tract infections, hype rtension, chronic atrial fibrillation. Admitted to the hospital with a fall, fractured right hip, st atus post repair by Dr. Hodges. The patient is doing physical therapy and occupational therapy . She is stable, no physical changes. The wounds are clean and dry. The patient is doing physical therapy and plan to be transitioned to subacute. Chase Worrell MD cc: [id number] TT: 06/07/2016 09:25:37 Confirmation # [id number] Dictation # [id number] en
[2016-06-07 09:30] VITALS: PULSE 82; RESP 20; TEMP 98; O2SAT 97
[2016-06-07] MEDS ORDERED: Potassium Chloride 20 mEq ER Tab PO ONE (10:00)
[2016-06-07 10:42] VITALS: BP 131/80
--- NOTE | 2016-06-08 16:27 | DS ---
Discharge on 06/07/2016 to [facility]. The patient was admitted to the hospital with fal l and fracture of the right hip was repaired by Dr. Hodges. The patient also has history of se izure disorder. She was continued on her seizure medication and a history of chronic atrial fibrilla tion, her Coumadin was held and then restarted. She will be discharged to a correction to restart her Coumadin and to do physical therapy and occupational therapy. FINAL DISCHARGE DIAGNOSES: Right hip fracture status post fall, chronic atrial fibrillation and seiz ure disorder. Chase Worrell MD cc: [id number] TT: 06/08/2016 16:27:19 cn
== END 2016-06-07 15:38 | DRG 481 ==
LOC: ED 12:54 → ERH 17:22 → 3RNO 21:18
PROVIDERS: ADMIT Internal Medicine; ATTEND Internal Medicine
PROC: 0QS604Z Reposition Right Upper Femur with Internal Fixation Device, Open Approach (ICD-10-PCS; principal; 2016-06-04 07:30)
DX: S72.141A Displaced intertrochanteric fracture of right femur, initial encounter for closed fracture (principal); I69.354 Hemiplegia and hemiparesis following cerebral infarction affecting left non-dominant side; G93.89 Other specified disorders of brain; I48.2 Chronic atrial fibrillation; F03.90 Unspecified dementia, unspecified severity, without behavioral disturbance, psychotic disturbance, mood disturbance, and anxiety; I10 Essential (primary) hypertension; E78.5 Hyperlipidemia, unspecified; G31.9 Degenerative disease of nervous system, unspecified; W19.XXXA Unspecified fall, initial encounter; M10.9 Gout, unspecified; G40.909 Epilepsy, unspecified, not intractable, without status epilepticus; F41.9 Anxiety disorder, unspecified; H40.9 Unspecified glaucoma; H26.9 Unspecified cataract; M19.90 Unspecified osteoarthritis, unspecified site; Z79.01 Long term (current) use of anticoagulants; R26.81 Unsteadiness on feet; Z87.440 Personal history of urinary (tract) infections; R74.8 Abnormal levels of other serum enzymes; M85.88 Other specified disorders of bone density and structure, other site; R07.9 Chest pain, unspecified; D64.9 Anemia, unspecified; Y92.009 Unspecified place in unspecified non-institutional (private) residence as the place of occurrence of the external cause